=== PATIENT | female | born 1995 | race Two or more races ===

== ENCOUNTER 2018-05-22 07:41 | Inpatient (IN) | payer SELFPAY ==
[~2018-05-22] VITALS: Ht 154.9 cm; Wt 70.8 kg
[2018-05-22] MEDS ORDERED: ceFAZolin SODIUM 1 GM in IV DEXTROSE 5% 50 ML IV ONE (08:00)
[2018-05-22] MEDS ORDERED: CITRIC ACID/SODIUM CITRATE 30 ML SOLUTION. PO ONE (08:30)
[2018-05-22 08:46] VITALS: BP 114/71
[2018-05-22] MEDS: IV RINGERS,LACTATED 1000ML 1,000 ML IV PRN ×3 (08:54→16:47)
[2018-05-22 09:10] LABS: BASO % 0 % (0-3); EOS # 0.1 x10^3/uL (0.0-0.7); EOS % 1 % (0-3); HEMATOCRIT 33.3 % (36.0-47.0); HEMOGLOBIN 11.1 g/dL (12.0-15.5); LYMPH # 2.6 x10^3/uL (1.0-4.8); LYMPH % 22 % (24-48); MEAN CORPUSCULAR HEMOGLOBIN 29 pg (25-35); MEAN CORPUSCULAR HGB CONC 34 g/dL (31-37); MEAN CORPUSCULAR VOLUME 88 fL (79-100); MONO # 0.9 x10^3/uL (0.0-1.1); MONO % 8 % (0-9); NEUT # 7.9 x10^3uL (1.8-7.7); NEUT % 69 % (31-73); PLATELET COUNT 223 x10^3/uL (140-400); RED BLOOD COUNT 3.78 x10^6/uL (3.50-5.40); RED CELL DISTRIBUTION WIDTH 14.1 % (11.5-14.5); WHITE BLOOD COUNT 11.4 x10^3/uL (4.0-11.0)
[2018-05-22 09:40] LABS: BILIRUBIN,URINE NEGATIVE (NEG); CLARITY,URINE CLEAR; COLOR,URINE YELLOW; NITRITE,URINE NEGATIVE (NEG); PH,URINE 6.5; PROTEIN,URINE NEGATIVE (NEG-TRACE); UROBILINOGEN,URINE 0.2 mg/dL (0.2 mg/dL)
[2018-05-22 10:13] LABS: SQUAMOUS EPITHELIAL CELL,UR MANY /LPF
[2018-05-22 10:16] LABS: BACTERIA,URINE 0 /HPF (0-FEW); RBC,URINE 0 /HPF (0-2)
[2018-05-22] MEDS ORDERED: FAMOTIDINE 20 MG/2 ML VIAL ONE (12:27)
[2018-05-22] MEDS ORDERED: ONDANSETRON PF 4 MG/2 ML VIAL. ONE (12:27)
[2018-05-22] MEDS ORDERED: fentaNYL PF VIAL 100 MCG/2 ML VIAL ONE (12:27)
[2018-05-22] MEDS ORDERED: OXYTOCIN 10 UNIT/ML VIAL. ONE ×3 (12:27→13:54)
[2018-05-22] MEDS ORDERED: MORPHINE PF 5 MG/10 ML VIAL. ONE (12:27)
[2018-05-22] MEDS ORDERED: BUPIVACAINE MPF 0.75% DEXTROSE 2 ML AMPUL. ONE (12:38)
[2018-05-22] MEDS ORDERED: OXYTOCIN 30 UNIT/500 ML PREMIX 500 ML IV PRN (14:30)
[2018-05-22] MEDS ORDERED: MAG HYDROX/ALUMINUM HYD/SIMETH 30 ML ORAL.SUSP PO PRN (14:30)
[2018-05-22] MEDS ORDERED: diphenhydrAMINE ORAL ELIXIR 12.5 MG/5 ML ML PO PRN (14:30)
[2018-05-22] MEDS ORDERED: ONDANSETRON PF 4 MG/2 ML VIAL. IV PRN (14:30)
[2018-05-22] MEDS ORDERED: 0.9 % SODIUM CHLORIDE 10 ML DISP.SYRIN. IV PRN (14:30)
[2018-05-22] MEDS ORDERED: MMR per PROTOCOL. MC PRN (14:30)
[2018-05-22] MEDS ORDERED: SIMETHICONE 80 MG TAB.CHEW PO PRN (14:30)
[2018-05-22] MEDS ORDERED: oxyCODONE/APAP 5/325 1 TAB TABLET PO PRN (14:30)
[2018-05-22] MEDS ORDERED: MAGNESIUM HYDROXIDE 2,400 MG/30 ML ORAL.SUSP. PO PRN (14:30)
[2018-05-22] MEDS ORDERED: ZOLPIDEM 5 MG TABLET. PO PRN (14:30)
--- NOTE | 2018-05-22 14:30 | PDOC ---
BRIEF OPERATIVE NOTE Date: May 22, 2018 Pre-Op Diagnosis TIUP RLTC/S Post-Op Diagnosis Same Procedure Performed As above Surgeon Adelita Anesthesia Type: Regional Blood Loss 700cc Specimens Obtained none Findings 35ozFemale 8#5oz Complications none NABOR HERNANDEZ MD May 22, 2018 14:30
--- NOTE | 2018-05-22 15:00 | OP ---
DATE OF SURGERY: 05/22/2018 PREOPERATIVE DIAGNOSES: Term intrauterine , desires repeat . POSTOPERATIVE DIAGNOSES: Term intrauterine , desires repeat . PROCEDURE: Repeat low transverse . SURGEON: Paul Ureña MD. RETURN AGENT AIRPORT: None. ANESTHESIA: General. ESTIMATED BLOOD LOSS: 700 mL. FLUIDS: Crystalloid. SPECIMENS: None. COMPLICATIONS: None. CONDITION: Stable. FINDINGS: Normal uterus, tubes, and ovaries. Female , Apgars 8, 9 and 9, weight 8 pounds 5 ounces. DESCRIPTION OF PROCEDURE: Risks, benefits, indications, alternatives, expectations were discussed in detail with the patient and the patient's . The patient was brought to the OR theater, placed in a supine position with left lateral uterine displacement. After adequate regional anesthesia, the patient was prepped and draped in usual sterile manner. A low transverse Pfannenstiel incision was taken out in toto, both sharply and bluntly with a scalpel and Bovie cautery. Subcutaneous tissue was taken down with Bovie cautery. Bovie cautery nicked at the rectus fascia in midline and extended laterally in each direction with Bovie cautery. Upper edge of rectus fascia was , both bluntly and sharply with Bovie cautery and scalpel in gloved hand. Same procedure was carried on lower edge of rectus fascia. Rectus muscle split in middle and extended superiorly and inferiorly with Bovie cautery. Parietoperitoneum was entered bluntly with gloved hand. With gentle stretch on rectus muscle, room was made for delivery of the infant. There were significant adhesions of the bladder, high up on the uterus. This was taken down sharply with Metzenbaum scissors in usual fashion. Bladder flap was created. Tye retractor was placed within the pelvic cavity. Sponge was placed in the gutters bilaterally. Low transverse hysterotomy incision was made sharply with a scalpel with care not injuring underlying structures. Clear fluid was noted. The incision was extended laterally upwardly with gloved hand. Gloved hand was placed in the lower uterine segment, used to elevate head. With fundal pressure from the activities assistant, was delivered on anterior abdominal wall. cried spontaneously and moved all extremities. was bulb suctioned. Cord was doubly clamped, transected cord between 2 clamps and infant was handed to nursing care in attendance. Cord blood sample was taken, placenta delivered spontaneously intact 3-vessel cord. The uterus was wiped clean with laparotomy sponge. A low transverse hysterotomy incision was reapproximated with 0 Monocryl in running locking manner, imbricated with a horizontal 0 Monocryl stitch. The sponges were removed from the gutters. The gutter was noted to be free of any debris or blood. The bladder flap was reapproximated with 3-0 Vicryl in a running manner. The Leyva bulb was inspected to make sure the bladder was intact. The urine was clear. Rectus muscle was reapproximated in the midline with 3-0 Vicryl horizontal mattress stitch fashion. Areas of bleeding on rectus muscle controlled with Bovie cautery and Deven as well as part of the bladder flap. Rectus fascia was reapproximated with 0 PDS in a running manner. Subcutaneous tissue was irrigated copiously with warm normal saline. Josiah's fascia reapproximated with 2-0 plain in interrupted fashion. Skin was reapproximated with Insorb barbara. Sponge, needle and instrument counts were correct x 2 per the nursing staff. The patient went to postop anesthesia recovery in stable condition. PAUL UREÑA MD DR: JESSE/gretchen JOB#: [id number] / [id number]
[2018-05-22 17:00] VITALS: BP 110/68
[2018-05-22 17:35] VITALS: BP 111/59
[2018-05-22 18:05] VITALS: BP 111/63
[2018-05-22 19:30] VITALS: BP 119/70
[2018-05-22 20:50] VITALS: BP 139/65
[2018-05-22] MEDS: ceFAZolin SODIUM IV Push 1 GM VIAL. IVP SCH (21:43)
[2018-05-22] MEDS ORDERED: ceFAZolin SODIUM 1 GM in IV DEXTROSE 5% 50 ML IV SCH (22:00)
[2018-05-22] MEDS: IBUPROFEN 800 MG TABLET. PO SCH (22:00)
[2018-05-23] MEDS: IV RINGERS,LACTATED 1000ML 1,000 ML IV PRN (00:45)
[2018-05-23 01:07] VITALS: BP 100/57
[2018-05-23 05:21] LABS: BASO % 0 % (0-3); EOS % 0 % (0-3); HEMOGLOBIN 9.3 g/dL (12.0-15.5); LYMPH # 2.4 x10^3/uL (1.0-4.8); LYMPH % 22 % (24-48); MEAN CORPUSCULAR HEMOGLOBIN 29 pg (25-35); MEAN CORPUSCULAR HGB CONC 33 g/dL (31-37); MEAN CORPUSCULAR VOLUME 88 fL (79-100); MONO # 0.9 x10^3/uL (0.0-1.1); MONO % 8 % (0-9); NEUT # 7.7 x10^3uL (1.8-7.7); NEUT % 70 % (31-73); PLATELET COUNT 208 x10^3/uL (140-400); RED BLOOD COUNT 3.19 x10^6/uL (3.50-5.40); RED CELL DISTRIBUTION WIDTH 13.8 % (11.5-14.5); WHITE BLOOD COUNT 11.1 x10^3/uL (4.0-11.0)
[2018-05-23] MEDS: ceFAZolin SODIUM IV Push 1 GM VIAL. IVP SCH ×2 (05:58→14:16)
[2018-05-23] MEDS: IBUPROFEN 800 MG TABLET. PO SCH ×4 (06:00→23:50)
[2018-05-23 06:21] VITALS: BP 107/59
[2018-05-23] MEDS: DOCUSATE SODIUM 100 MG CAPSULE. PO PRN (08:34)
[2018-05-23] MEDS: FERROUS SULFATE 325 MG TABLET. PO SCH ×2 (08:34→17:03)
[2018-05-23] MEDS: oxyCODONE/APAP 5/325 1 TAB TABLET PO PRN ×3 (08:35→23:50)
[2018-05-23 08:45] VITALS: BP 98/60
[2018-05-23 12:45] VITALS: BP 112/61
--- NOTE | 2018-05-23 12:49 | PDOC ---
OB Progress Note Date of Service 05/23/18 Time of Evaluation 1245 Notes Pt. feeling well. No complaints. Lab Laboratory Tests Test 05/22/18 08:30 05/22/18 08:45 05/23/18 03:30 Urine Color Yellow Urine Clarity Clear Urine pH 6.5 Urine Specific [place] 1.010 Urine Protein Negative mg/dL (NEG-TRACE) Urine Glucose (UA) Negative mg/dL (NEG) Urine Ketones (Stick) Negative mg/dL (NEG) Urine Blood Negative (NEG) Urine Nitrite Negative (NEG) Urine Bilirubin Negative (NEG) Urine Urobilinogen Dipstick 0.2 mg/dL (0.2 mg/dL) Urine Leukocyte Esterase Moderate (NEG) Urine RBC 0 /HPF (0-2) Urine WBC 1-4 /HPF (0-4) Urine Squamous Epithelial Cells Many /LPF Urine Bacteria 0 /HPF (0-FEW) White Blood Count 11.4 x10^3/uL (4.0-11.0) 11.1 x10^3/uL (4.0-11.0) Red Blood Count 3.78 x10^6/uL (3.50-5.40) 3.19 x10^6/uL (3.50-5.40) Hemoglobin 11.1 g/dL (12.0-15.5) 9.3 g/dL (12.0-15.5) Hematocrit 33.3 % (36.0-47.0) 28.0 % (36.0-47.0) Mean Corpuscular Volume 88 fL (79-100) 88 fL (79-100) Mean Corpuscular Hemoglobin 29 pg (25-35) 29 pg (25-35) Mean Corpuscular Hemoglobin Concent 34 g/dL (31-37) 33 g/dL (31-37) Red Cell Distribution Width 14.1 % (11.5-14.5) 13.8 % (11.5-14.5) Platelet Count 223 x10^3/uL (140-400) 208 x10^3/uL (140-400) Neutrophils (%) (Auto) 69 % (31-73) 70 % (31-73) Lymphocytes (%) (Auto) 22 % (24-48) 22 % (24-48) Monocytes (%) (Auto) 8 % (0-9) 8 % (0-9) Eosinophils (%) (Auto) 1 % (0-3) 0 % (0-3) Basophils (%) (Auto) 0 % (0-3) 0 % (0-3) Neutrophils # (Auto) 7.9 x10^3uL (1.8-7.7) 7.7 x10^3uL (1.8-7.7) Lymphocytes # (Auto) 2.6 x10^3/uL (1.0-4.8) 2.4 x10^3/uL (1.0-4.8) Monocytes # (Auto) 0.9 x10^3/uL (0.0-1.1) 0.9 x10^3/uL (0.0-1.1) Eosinophils # (Auto) 0.1 x10^3/uL (0.0-0.7) 0.0 x10^3/uL (0.0-0.7) Basophils # (Auto) 0.0 x10^3/uL (0.0-0.2) 0.0 x10^3/uL (0.0-0.2) Treponema pallidum Antibody Nonreactive (Nonreactive) Laboratory Tests Test 05/23/18 03:30 White Blood Count 11.1 x10^3/uL (4.0-11.0) Red Blood Count 3.19 x10^6/uL (3.50-5.40) Hemoglobin 9.3 g/dL (12.0-15.5) Hematocrit 28.0 % (36.0-47.0) Mean Corpuscular Volume 88 fL (79-100) Mean Corpuscular Hemoglobin 29 pg (25-35) Mean Corpuscular Hemoglobin Concent 33 g/dL (31-37) Red Cell Distribution Width 13.8 % (11.5-14.5) Platelet Count 208 x10^3/uL (140-400) Neutrophils (%) (Auto) 70 % (31-73) Lymphocytes (%) (Auto) 22 % (24-48) Monocytes (%) (Auto) 8 % (0-9) Eosinophils (%) (Auto) 0 % (0-3) Basophils (%) (Auto) 0 % (0-3) Neutrophils # (Auto) 7.7 x10^3uL (1.8-7.7) Lymphocytes # (Auto) 2.4 x10^3/uL (1.0-4.8) Monocytes # (Auto) 0.9 x10^3/uL (0.0-1.1) Eosinophils # (Auto) 0.0 x10^3/uL (0.0-0.7) Basophils # (Auto) 0.0 x10^3/uL (0.0-0.2) Medications Current Medications Ringer's Solution 1,000 ml @ 1,000 mls/hr Q1H PRN IV PER PROTOCOL Last administered on 05/23/18at 00:45; Start 05/22/18 at 08:00 Cefazolin Sodium 1 gm/Dextrose 50 ml @ 100 mls/hr 1X ONCE IV ; Start 05/22/18 at 08:00; Stop 05/22/18 at 08:17; Status DC Citric Acid/ Sodium Citrate (Bicitra) 30 ml 1X ONCE PO Last administered on at 12:41; Start 05/22/18 at 08:30; Stop 05/22/18 at 08:31; Status DC Cefazolin Sodium 50 ml @ 100 mls/hr 1X PREOP PRN IV PRIOR TO PROCEDURE; Start 05/23/18 at 06:00; Stop 05/23/18 at 18:00 Famotidine (Pepcid Vial) 20 mg STK-MED ONCE .ROUTE ; Start 05/22/18 at 12:27; Stop 05/22/18 at 12:28; Status DC Ondansetron HCl (Zofran) 4 mg STK-MED ONCE .ROUTE ; Start 05/22/18 at 12:27; Stop 05/22/18 at 12:28; Status DC Oxytocin (Pitocin) 10 unit STK-MED ONCE .ROUTE ; Start 05/22/18 at 12:27; Stop 05/22/18 at 12:28; Status DC Morphine Sulfate (Morphine Preservative Free) 5 mg STK-MED ONCE .ROUTE ; Start 05/22/18 at 12:27; Stop 05/22/18 at 12:28; Status DC Fentanyl Citrate (Fentanyl 2ml Vial) 100 mcg STK-MED ONCE .ROUTE ; Start at 12:27; Stop 05/22/18 at 12:28; Status DC Bupivacaine HCl/ Dextrose (Marcaine Spinal 0.75%) 2 ml STK-MED ONCE .ROUTE ; Start 05/22/18 at 12:38; Stop 05/22/18 at 12:39; Status DC Ephedrine Sulfate (Akovaz) 50 mg STK-MED ONCE .ROUTE ; Start 05/22/18 at 13:27; Stop 05/22/18 at 13:28; Status DC Oxytocin (Pitocin) 10 unit STK-MED ONCE .ROUTE ; Start 05/22/18 at 13:54; Stop 05/22/18 at 13:55; Status DC Oxytocin (Pitocin) 10 unit STK-MED ONCE .ROUTE ; Start 05/22/18 at 13:54; Stop 05/22/18 at 13:55; Status DC Sodium Chloride (Normal Saline Flush) 3 ml QSHIFT PRN IV AFTER MEDS AND BLOOD DRAWS; Start 05/22/18 at 14:30 Oxytocin/Sodium Chloride 500 ml @ 125 mls/hr CONT PRN IV EXCESSIVE POST- BLEEDING; Start 05/22/18 at 14:30; Stop 05/22/18 at 22:29; Status DC Ibuprofen (Motrin) 800 mg Q8HRS PO Last administered on 05/23/18at 08:35; Start 05/22/18 at 22:00 Ondansetron HCl (Zofran) 4 mg PRN Q6HRS PRN IV NAUSEA/VOMITING Last administered on 05/22/18at 20:13; Start 05/22/18 at 14:30 Docusate Sodium (Colace) 100 mg PRN BID PRN PO HARD STOOLS Last administered on 05/23/18at 08:34; Start 05/22/18 at 14:30 Magnesium Hydroxide (Milk Of Magnesia) 2,400 mg PRN DAILY PRN PO CONSTIPATION; Start 05/22/18 at 14:30 Al Hydroxide/Mg Hydroxide (Mylanta Plus Xs) 30 ml PRN Q4HRS PRN PO HEARTBURN / GAS; Start 05/22/18 at 14:30 Simethicone (Gas-X) 80 mg PRN AFTMEALHC PRN PO GAS / BLOATING; Start 05/22/18 at 14:30 Diphenhydramine HCl (Benadryl Oral Elixir) 12.5 mg PRN Q6HRS PRN PO ITCHING; Start 05/22/18 at 14:30 Ferrous Sulfate (Feosol) 325 mg BIDWMEALS PO Last administered on 05/23/18at 08: 34; Start 05/22/18 at 17:00 Zolpidem Tartrate (Ambien) 5 mg PRN QHS PRN PO INSOMNIA, MAY REPEAT X1; Start 05/22/18 at 14:30 Info (Do NOT chart on this placeholder) 1 ea PRN 1X PRN MC SEE COMMENTS; Start 05/22/18 at 14:30 Info (Do NOT chart on this placeholder) 1 ea PRN 1X PRN MC SEE COMMENTS; Start 05/22/18 at 14:30 Oxycodone/ Acetaminophen (Percocet 5/325) 1 tab PRN Q4HRS PRN PO MILD PAIN Last administered on 05/23/18at 08:35; Start 05/22/18 at 14:30 Oxycodone/ Acetaminophen (Percocet 5/325) 2 tab PRN Q4HRS PRN PO MODERATE PAIN , SEVERE PAIN; Start 05/22/18 at 14:30 Cefazolin Sodium 1 gm/Dextrose 50 ml @ 100 mls/hr Q8HRS IV ; Start 05/22/18 at 22:00; Status UNV Cefazolin Sodium (Ancef) 1 gm Q8HRS IVP Last administered on 05/23/18at 05:58; Start 05/22/18 at 22:00; Stop 05/23/18 at 14:01 Exam Abd: soft, mild tenderness, fundus firm PICOS in place Assessment POD#1 s/p repeat c/s Plan of Care: Continue current Tx, Mgmt GERMAIN RODRÍGUEZ Jr, MD May 23, 2018 12:49
[2018-05-23 17:15] VITALS: BP 96/60
[2018-05-23 21:40] VITALS: BP 104/56
[2018-05-24 06:14] VITALS: BP 93/53
[2018-05-24] MEDS: DOCUSATE SODIUM 100 MG CAPSULE. PO PRN (08:21)
[2018-05-24] MEDS: FERROUS SULFATE 325 MG TABLET. PO SCH (08:22)
[2018-05-24] MEDS: oxyCODONE/APAP 5/325 1 TAB TABLET PO PRN ×2 (08:22→16:08)
[2018-05-24 10:45] VITALS: BP 118/60
--- NOTE | 2018-05-24 14:08 | PDOC ---
OB Progress Note Date of Service 05/24/18 Time of Evaluation 1400 Notes Pt. feeling well. Pain controlled. Lab Laboratory Tests Test 05/23/18 03:30 White Blood Count 11.1 x10^3/uL (4.0-11.0) Red Blood Count 3.19 x10^6/uL (3.50-5.40) Hemoglobin 9.3 g/dL (12.0-15.5) Hematocrit 28.0 % (36.0-47.0) Mean Corpuscular Volume 88 fL (79-100) Mean Corpuscular Hemoglobin 29 pg (25-35) Mean Corpuscular Hemoglobin Concent 33 g/dL (31-37) Red Cell Distribution Width 13.8 % (11.5-14.5) Platelet Count 208 x10^3/uL (140-400) Neutrophils (%) (Auto) 70 % (31-73) Lymphocytes (%) (Auto) 22 % (24-48) Monocytes (%) (Auto) 8 % (0-9) Eosinophils (%) (Auto) 0 % (0-3) Basophils (%) (Auto) 0 % (0-3) Neutrophils # (Auto) 7.7 x10^3uL (1.8-7.7) Lymphocytes # (Auto) 2.4 x10^3/uL (1.0-4.8) Monocytes # (Auto) 0.9 x10^3/uL (0.0-1.1) Eosinophils # (Auto) 0.0 x10^3/uL (0.0-0.7) Basophils # (Auto) 0.0 x10^3/uL (0.0-0.2) Medications Current Medications Ringer's Solution 1,000 ml @ 1,000 mls/hr Q1H PRN IV PER PROTOCOL Last administered on 05/23/18at 00:45; Start 05/22/18 at 08:00 Cefazolin Sodium 1 gm/Dextrose 50 ml @ 100 mls/hr 1X ONCE IV ; Start 05/22/18 at 08:00; Stop 05/22/18 at 08:17; Status DC Citric Acid/ Sodium Citrate (Bicitra) 30 ml 1X ONCE PO Last administered on at 12:41; Start 05/22/18 at 08:30; Stop 05/22/18 at 08:31; Status DC Cefazolin Sodium 50 ml @ 100 mls/hr 1X PREOP PRN IV PRIOR TO PROCEDURE; Start 05/23/18 at 06:00; Stop 05/23/18 at 18:00; Status DC Famotidine (Pepcid Vial) 20 mg STK-MED ONCE .ROUTE ; Start 05/22/18 at 12:27; Stop 05/22/18 at 12:28; Status DC Ondansetron HCl (Zofran) 4 mg STK-MED ONCE .ROUTE ; Start 05/22/18 at 12:27; Stop 05/22/18 at 12:28; Status DC Oxytocin (Pitocin) 10 unit STK-MED ONCE .ROUTE ; Start 05/22/18 at 12:27; Stop 05/22/18 at 12:28; Status DC Morphine Sulfate (Morphine Preservative Free) 5 mg STK-MED ONCE .ROUTE ; Start 05/22/18 at 12:27; Stop 05/22/18 at 12:28; Status DC Fentanyl Citrate (Fentanyl 2ml Vial) 100 mcg STK-MED ONCE .ROUTE ; Start at 12:27; Stop 05/22/18 at 12:28; Status DC Bupivacaine HCl/ Dextrose (Marcaine Spinal 0.75%) 2 ml STK-MED ONCE .ROUTE ; Start 05/22/18 at 12:38; Stop 05/22/18 at 12:39; Status DC Ephedrine Sulfate (Akovaz) 50 mg STK-MED ONCE .ROUTE ; Start 05/22/18 at 13:27; Stop 05/22/18 at 13:28; Status DC Oxytocin (Pitocin) 10 unit STK-MED ONCE .ROUTE ; Start 05/22/18 at 13:54; Stop 05/22/18 at 13:55; Status DC Oxytocin (Pitocin) 10 unit STK-MED ONCE .ROUTE ; Start 05/22/18 at 13:54; Stop 05/22/18 at 13:55; Status DC Sodium Chloride (Normal Saline Flush) 3 ml QSHIFT PRN IV AFTER MEDS AND BLOOD DRAWS; Start 05/22/18 at 14:30 Oxytocin/Sodium Chloride 500 ml @ 125 mls/hr CONT PRN IV EXCESSIVE POST- BLEEDING; Start 05/22/18 at 14:30; Stop 05/22/18 at 22:29; Status DC Ibuprofen (Motrin) 800 mg Q8HRS PO Last administered on 05/23/18at 23:50; Start 05/22/18 at 22:00 Ondansetron HCl (Zofran) 4 mg PRN Q6HRS PRN IV NAUSEA/VOMITING Last administered on 05/22/18at 20:13; Start 05/22/18 at 14:30 Docusate Sodium (Colace) 100 mg PRN BID PRN PO HARD STOOLS Last administered on 05/24/18at 08:21; Start 05/22/18 at 14:30 Magnesium Hydroxide (Milk Of Magnesia) 2,400 mg PRN DAILY PRN PO CONSTIPATION; Start 05/22/18 at 14:30 Al Hydroxide/Mg Hydroxide (Mylanta Plus Xs) 30 ml PRN Q4HRS PRN PO HEARTBURN / GAS; Start 05/22/18 at 14:30 Simethicone (Gas-X) 80 mg PRN AFTMEALHC PRN PO GAS / BLOATING; Start 05/22/18 at 14:30 Diphenhydramine HCl (Benadryl Oral Elixir) 12.5 mg PRN Q6HRS PRN PO ITCHING; Start 05/22/18 at 14:30 Ferrous Sulfate (Feosol) 325 mg BIDWMEALS PO Last administered on 05/24/18at 08: 22; Start 05/22/18 at 17:00 Zolpidem Tartrate (Ambien) 5 mg PRN QHS PRN PO INSOMNIA, MAY REPEAT X1; Start 05/22/18 at 14:30 Info (Do NOT chart on this placeholder) 1 ea PRN 1X PRN MC SEE COMMENTS; Start 05/22/18 at 14:30 Info (Do NOT chart on this placeholder) 1 ea PRN 1X PRN MC SEE COMMENTS; Start 05/22/18 at 14:30 Oxycodone/ Acetaminophen (Percocet 5/325) 1 tab PRN Q4HRS PRN PO MILD PAIN Last administered on 05/24/18at 08:22; Start 05/22/18 at 14:30 Oxycodone/ Acetaminophen (Percocet 5/325) 2 tab PRN Q4HRS PRN PO MODERATE PAIN , SEVERE PAIN; Start 05/22/18 at 14:30 Cefazolin Sodium 1 gm/Dextrose 50 ml @ 100 mls/hr Q8HRS IV ; Start 05/22/18 at 22:00; Status UNV Cefazolin Sodium (Ancef) 1 gm Q8HRS IVP Last administered on 05/23/18at 14:16; Start 05/22/18 at 22:00; Stop 05/23/18 at 14:01; Status DC Exam Abd: soft, mild tenderness, fundus firm PICOS in place. Assessment POD#2 s/p repeat c/s Plan of Care: Continue current Tx, Mgmt GERMAIN RODRÍGUEZ Jr, MD May 24, 2018 14:08
[2018-05-24 15:30] VITALS: BP 121/79
[2018-05-24] MEDS: IBUPROFEN 800 MG TABLET. PO SCH (16:08)
[2018-05-24 23:14] VITALS: BP 123/68
[2018-05-25] MEDS: oxyCODONE/APAP 5/325 1 TAB TABLET PO PRN ×2 (06:23→14:31)
[2018-05-25] MEDS: IBUPROFEN 800 MG TABLET. PO SCH ×2 (06:23→14:31)
[2018-05-25 06:27] VITALS: BP 115/69
[2018-05-25 10:05] VITALS: BP 114/67
[2018-05-25] MEDS: FERROUS SULFATE 325 MG TABLET. PO SCH (14:31)
--- NOTE | 2018-05-25 14:43 | PDOC3 ---
OB DISCHARGE SUMMARY DATE OF ADMISSION: 05/22/18 DATE OF DISCHARGE: 05/25/18 REASON FOR ADMISSION: section PROCEDURES: Ultrasound INTRAPARTUM PROCEDURES: : Low Cerv Trans OPERATIONS: None DISCHARGE DIAGNOSIS: Term Delivered DISCHARGE INFORMATION: Activity, Diet HOSPITAL COURSE unremarkable CONDITION AT DISCHARGE Stable NABOR HERNANDEZ MD May 25, 2018 14:43
[2018-05-25] MEDS ORDERED: OXYC-323 PO (14:45)
[2018-05-25] MEDS ORDERED: NAPR-514 PO (14:45)
[2018-05-25 15:40] VITALS: BP 113/80
== END 2018-05-25 16:05 | disposition home or self-care (01) | DRG 766 ==
LOC: 3 SO LND 07:41 → 3 NORTH 17:16
PROVIDERS: ADMIT Specialist; ATTEND Specialist
PROC: 10D00Z1 Extraction of Products of Conception, Low, Open Approach (ICD-10-PCS; principal; 2018-05-22)
DX: O34.211 Maternal care for low transverse scar from previous cesarean delivery (principal); Z37.0 Single live birth; Z3A.00 Weeks of gestation of pregnancy not specified
CPT/HCPCS: 36415; 81001; 85025; 86592; 86850; 86900; 86901; 87086; J0690; J2270; J2405; J2590; J3010; J7120; S0028